=== PATIENT | male | born 1940 | race Caucasian/White ===

== ENCOUNTER 2016-08-02 14:47 | Inpatient (IN) | payer MEDICARE ==
[~2016-08-02] VITALS: Ht 152.4 cm; Wt 65.0 kg
[2016-08-02 14:49] VITALS: BP 136/65; PULSE 96; RESP 20; TEMP 100.2; O2SAT 92
[2016-08-02] MEDS ORDERED: SODIUM CHLOR 0.9% 1000 ML INJ 1,000 ML IV SCH ×3 (15:16→19:30)
--- NOTE | 2016-08-02 15:23 | PD ---
HPI Chief Complaint: Musculoskeletal Complaint Time Seen by Provider: 15:10 Travel History International Travel<30 days: No Contact w/Intl Traveler<30days: No Traveled to known affect area: No History of Present Illness HPI 75-year-old male presents with his for evaluation. The reports that he and his are currently on vacation to attend a conference from [place]. He reports that throughout the day today the patient has not been talking very much. He has also been walking very slowly shuffling gait. For this reason he was brought in for evaluation. He has had a cough since yesterday. He denies any chest pain, shortness of breath, headache, nausea or vomiting, abdominal pain, dysuria, flank pain. No rashes. The reports he has a history of left knee replacement in 2014, history of hearing impairment. He is otherwise without significant past medical history. No other complaints at this time. [facility] Past Medical History Medical History: Denies Significant Hx Diminished Hearing: Yes (bilateral ) Past Surgical History Eye Surgery: Yes Other Surgery: Yes (left knee ) Social History Alcohol Use: No Tobacco Use: No Substance Use: No Allergies-Medications (Allergen,Severity, Reaction): Coded Allergies: Penicillin (Verified Allergy, Severe, Rash, 08/02/16) Reported Meds & Prescriptions Reported Meds & Active Scripts Active No Active Prescriptions or Reported Medications Review of Systems Except as stated in HPI: all other systems reviewed are Neg Physical Exam Narrative GENERAL: Well-developed well-nourished male in no acute distress. He is alert to person and place, knows the month but thinks the year is 1975. He has a dry cough during examination. SKIN: Warm and dry. HEAD: Atraumatic. Normocephalic. EYES: Pupils equal and round. No scleral icterus. No injection or drainage. ENT: No nasal bleeding or discharge. Mucous membranes pink and moist. Nasal rhinorrhea noted. NECK: Trachea midline. No JVD. No lymphadenopathy. CARDIOVASCULAR: Regular rate and rhythm. No murmur appreciated. RESPIRATORY: No accessory muscle use. Clear to auscultation. Breath sounds equal bilaterally. GASTROINTESTINAL: Abdomen soft, non-tender, nondistended. Hepatic and splenic margins not palpable. MUSCULOSKELETAL: No obvious deformities. Anterior left surgical scar noted to the left knee. No joint effusion. NEUROLOGICAL: Awake and alert. No obvious cranial nerve deficits. Motor grossly within normal limits. Normal speech. PSYCHIATRIC: Appropriate mood and affect; insight and judgment normal. Data Data Last Documented VS Vital Signs Date Time Temp Pulse Resp B/P Pulse Ox O2 Delivery O2 Flow Rate FiO2 08/02/16 18:00 78 16 116/54 97 Room Air 08/02/16 16:18 100.2 Orders Electrocardiogram (08/02/16 15:16) Complete Blood Count With Diff (08/02/16 15:16) Comprehensive Metabolic Panel (08/02/16 15:16) Lactic Acid Sepsis Protocol (08/02/16 15:16) Urinalysis - C+S If Indicated (08/02/16 15:16) Influenzae A/B Antigen (08/02/16 15:16) Blood Culture (08/02/16 15:16) Blood Glucose (08/02/16 15:16) Ecg Monitoring (08/02/16 15:16) Iv Access Insert/Monitor (08/02/16 15:16) Oximetry (08/02/16 15:16) Oxygen Administration (08/02/16 15:16) Ct Brain W/O Iv Contrast(Rout) (08/02/16 15:16) Sodium Chlor 0.9% 1000 Ml Inj (Ns 1000 M (08/02/16 15:16) Acetaminophen (Tylenol) (08/02/16 15:30) Chest, Pa & Lat (08/02/16 ) Act Partial Throm Time (Ptt) (08/02/16 15:16) Prothrombin Time / Inr (Pt) (08/02/16 15:16) Ammonia (08/02/16 15:39) Csf B.Burgdorfer Igg&Igm Lymes (08/02/16 17:32) Csf Cell Count + Differential (08/02/16 17:32) Glucose, Csf (08/02/16 17:32) Total Protein, Csf (08/02/16 17:32) Csf Culture And Gram Stain (08/02/16 17:32) Ceftriaxone Inj (Rocephin Inj) (08/02/16 17:38) Vancomycin Inj (Vancomycin Inj) (08/02/16 18:45) Lidocaine Pf 1% Inj (Xylocaine-Mpf 1% In (08/02/16 18:15) Sodium Chlor 0.9% 1000 Ml Inj (Ns 1000 M (08/02/16 18:24) Admit Order (Ed Use Only) (08/02/16 18:45) Labs Laboratory Tests Test 08/02/16 08/02/16 15:20 15:50 White Blood Count 8.3 TH/MM3 Red Blood Count 4.25 MIL/MM3 Hemoglobin 13.3 GM/DL Hematocrit 39.6 % Mean Corpuscular Volume 93.3 FL Mean Corpuscular Hemoglobin 31.4 PG Mean Corpuscular Hemoglobin 33.6 % Concent Red Cell Distribution Width 14.4 % Platelet Count 178 TH/MM3 Mean Platelet Volume 9.4 FL Neutrophils (%) (Auto) 84.5 % Lymphocytes (%) (Auto) 3.4 % Monocytes (%) (Auto) 10.6 % Eosinophils (%) (Auto) 0.8 % Basophils (%) (Auto) 0.7 % Neutrophils # (Auto) 7.0 TH/MM3 Lymphocytes # (Auto) 0.3 TH/MM3 Monocytes # (Auto) 0.9 TH/MM3 Eosinophils # (Auto) 0.1 TH/MM3 Basophils # (Auto) 0.1 TH/MM3 CBC Comment DIFF FINAL Differential Comment Prothrombin Time 11.5 SEC Prothromb Time International 1.0 RATIO Ratio Activated Partial 25.3 SEC Thromboplast Time Urine Color DARK-YELLOW Urine Turbidity CLEAR Urine pH 5.5 Urine Specific [place] 1.030 Urine Protein 30 mg/dL Urine Glucose (UA) NEG mg/dL Urine Ketones NEG mg/dL Urine Occult Blood NEG Urine Nitrite NEG Urine Bilirubin NEG Urine Urobilinogen LESS THAN 2.0 MG/DL Urine Leukocyte Esterase NEG Urine RBC 5 /hpf Urine WBC 2 /hpf Urine Squamous Epithelial <1 /hpf Cells Urine Mucus FEW /lpf Microscopic Urinalysis Comment CATH-CULT NOT IND Sodium Level 138 MEQ/L Potassium Level 4.1 MEQ/L Chloride Level 103 MEQ/L Carbon Dioxide Level 28.4 MEQ/L Anion Gap 7 MEQ/L Blood Urea Nitrogen 18 MG/DL Creatinine 1.14 MG/DL Estimat Glomerular Filtration 62 ML/MIN Rate Random Glucose 158 MG/DL Lactic Acid Level 1.3 mmol/L Calcium Level 8.8 MG/DL Total Bilirubin 0.8 MG/DL Aspartate Amino Transf 14 U/L (AST/SGOT) Alanine Aminotransferase 17 U/L (ALT/SGPT) Alkaline Phosphatase 78 U/L Total Protein 7.5 GM/DL Albumin 4.0 GM/DL Ammonia 19 MCMOL/L MDM Medical Decision Making Medical Screen Exam Complete: Yes Emergency Medical Condition: Yes Medical Record Reviewed: Yes Interpretation(s) EKG NSR RATE 84 CT of the brain CONCLUSION: 1. No acute intracranial abnormalities. 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 CBC WBC 8.3, neutrophil percentage 84.5 CMP glucose 158 Lactic acid 1.3 Ammonia 19 Influenza negative Chest x-ray no active disease. Compression deformity at T11 of uncertain age. Differential Diagnosis Pneumonia, influenza, pyelonephritis, meningitis, septic arthritis, sinusitis Narrative Course 75-year-old male who has had a cough since yesterday presents with because he seemed to be walking slower than usual, less communicative than usual since he woke up this morning. On initial examination he is febrile with temperature 102.8. He responds to commands appropriately. He is somewhat slow to answer questions alert and oriented to person and place but initially thinking the year was 1970s. He has rhinorrhea and a cough during examination. He has no meningeal signs. No obvious rashes. His abdomen is soft and nontender. Plan is for basic lab work, chest x-ray, influenza antigen and CT of the brain. The patient was given IV fluids and Tylenol. Discussed with my attending who agrees with plan of care. Chest x-ray reveals no acute disease. He has moderate compression deformity of T11 of uncertain age. He has no point tenderness to palpation over this region and he had no recent falls according to the so likely nonacute. Upon speaking with the patient's further she does mention that the patient was diagnosed with Lyme disease and babesiosis in 2006 and had similar episode of altered mental status that time. His initial test results reveal no acute etiology for his fever and altered mental status and therefore discussion was made with the recommendation to the patient's for consent for lumbar puncture and ultimately for admission for further testing and treatment. The patient was empirically started on Rocephin and vancomycin after the lumbar puncture was performed by Dr. Lozano. D/W Devin Will who is agreeable with admission. Procedures EKG Prior to Arrival: Yes Sepsis Criteria SIRS Criteria (2 or more): Temp > 100.9 or < 96.8, Heart rate over 90 Criteria Outcome: Meets SIRS criteria Diagnosis Primary Impression: Altered mental status Qualified Code: R41.82 - Altered mental status, unspecified altered mental status type Additional Impressions: Fever Qualified Code: R50.9 - Fever, unspecified fever cause Encephalitis Admitting Information Admitting Physician Requests: Admit Scripts No Active Prescriptions or Reported Meds Aroldo Rose Aug 02, 2016 15:23
[2016-08-02] MEDS ORDERED: ACETAMINOPHEN 325 MG TAB PO ONE (15:30)
[2016-08-02 15:45] VITALS: TEMP 102.8
[2016-08-02 15:57] LABS: BASOPHIL # 0.1 TH/MM3 (0-0.2); BASOPHIL % 0.7 % (0.0-2.0); EOSINOPHIL # 0.1 TH/MM3 (0-0.4); EOSINOPHIL % 0.8 % (0.0-4.0); HEMATOCRIT 39.6 % (39.0-51.0); HEMO FLAGS DIFF FINAL; LYMPH % 3.4 % (9.0-44.0); LYMPHOCYTE # 0.3 TH/MM3 (1.0-4.8); MEAN CELL VOLUME 93.3 FL (80.0-100.0); MEAN CORPUSCULAR HEMOGLOBIN 31.4 PG (27.0-34.0); MEAN CORPUSCULAR HGB CONC 33.6 % (32.0-36.0); MONO % 10.6 % (0.0-8.0); NEUT % 84.5 % (16.0-70.0); PLATELET COUNT 178 TH/MM3 (150-450); RED BLOOD COUNT 4.25 MIL/MM3 (4.50-5.90); RED CELL DISTRIBUTION WIDTH 14.4 % (11.6-17.2); WHITE BLOOD COUNT 8.3 TH/MM3 (4.0-11.0)
[2016-08-02 15:58] LABS: BLOOD, URINE NEG (NEG); GLUCOSE,URINE NEG (NEG); KETONE, URINE NEG (NEG); MUCUS URINE FEW /lpf (OCC); NITRITE,URINE NEG (NEG); PH, URINE 5.5 (5.0-8.5); SQUAMOUS EPITHELIAL CELL URINE <1 /hpf (0-5); URINE COLOR DARK-YELLOW (YELLW/STRAW)
[2016-08-02 16:02] LABS: COMMENT (UR) CATH-CULT NOT IND; CULTURE IF INDICATED CATH CULTURE NOT IND
[2016-08-02 16:04] LABS: APTT (PATIENT) 25.3 SEC (24.3-30.1); PROTHROMBIN TIME - PATIENT 11.5 SEC (9.8-11.6)
--- NOTE | 2016-08-02 16:04 | RADRPT ---
EXAM DATE/TIME: 08/02/2016 15:37 [facility] COMPARISON: No previous studies available for comparison. INDICATIONS : Cough and fever. MEDICAL HISTORY : None. SURGICAL HISTORY : None. ENCOUNTER: Initial ACUITY: 4 - 6 days PAIN SCORE: 0/10 LOCATION: Bilateral chest FINDINGS: PA and lateral views of the chest demonstrate the lungs to be symmetrically aerated without evidence of mass, infiltrate or effusion. The cardiomediastinal contours are unremarkable. Moderate compressi on deformity at T11. CONCLUSION: No active disease. Compression deformity at T11 of uncertain age. Jaylen Fiore MD on August 02, 2016 at 16:02 Board Certified Radiologist. This report was verified electronically.
[2016-08-02 16:08] LABS: ALT (GPT) 17 U/L (12-78); ANION GAP 7 MEQ/L (5-15); AST (GOT) 14 U/L (15-37); BICARBONATE 28.4 MEQ/L (21.0-32.0); BLOOD UREA NITROGEN 18 MG/DL (7-18); CHLORIDE 103 MEQ/L (98-107); GLOMERULAR FILTRATION RATE 62 ML/MIN (>89); POTASSIUM 4.1 MEQ/L (3.5-5.1); SODIUM (NA) 138 MEQ/L (136-145)
[2016-08-02 16:11] LABS: ALKALINE PHOSPHATASE 78 U/L (45-117); TOTAL BILIRUBIN ADULT 0.8 MG/DL (0.2-1.0)
[2016-08-02 16:18] VITALS: TEMP 100.2
--- NOTE | 2016-08-02 16:53 | RADRPT ---
EXAM DATE/TIME: 08/02/2016 16:35 [facility] COMPARISON: No previous studies available for comparison. INDICATIONS : Altered mental status. RADIATION DOSE: 56.35 CTDIvol (mGy) MEDICAL HISTORY : None SURGICAL HISTORY : None. ENCOUNTER: Initial ACUITY: 1 day PAIN SCALE: 0/10 LOCATION: cranial TECHNIQUE: Multiple contiguous axial images were obtained of the head. Using automated exposure control and adj ustment of the mA and/or kV according to patient size, radiation dose was kept as low as reasonably a chievable to obtain optimal diagnostic quality images. FINDINGS: CEREBRUM: The ventricles are normal for age. No evidence of midline shift, mass lesion, hemorrhage or acute in farction. No extra-axial fluid collections are seen. POSTERIOR FOSSA: The cerebellum and brainstem are intact. The 4th ventricle is midline. The cerebellopontine angle i s unremarkable. EXTRACRANIAL: The visualized portion of the orbits is intact. There is a large retention cyst in the sphenoid sinus . SKULL: The calvaria is intact. No evidence of skull fracture. CONCLUSION: 1. No acute intracranial abnormalities. 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 Jaylen Fiore MD on August 02, 2016 at 16:50 Board Certified Radiologist. This report was verified electronically.
[2016-08-02] MEDS ORDERED: cefTRIAXone INJ 2,000 MG in SODIUM CHLORIDE 0.9% INJ 100 ML IV STA (17:38)
--- NOTE | 2016-08-02 17:42 | PD ---
Physical Exam Date Seen by Provider: Aug 02, 2016 Time Seen by Provider: 18:27 Narrative 75-year-old male came to the emergency room brought by his with history of fever, altered sensorium, confusion and delirium that started since this morning. Patient is from [place] and they are here on a conference. His temperature in the emergency room upon arrival was 102.5. Patient is hard of hearing but was confused with his orientation. He did not know which city he was in and what was he doing here. gave additional information of patient being diagnosed with Lyme's disease and Babesiosis in 2005. She said at that time he had presented in the similar fashion and he was in the hospital for 10 days and being treated with IV antibiotic. Patient was seen by the PA and I'm supervising him. Sepsis workup was done and all the test results came back to be within normal limit with negative chest x-ray and negative influenza test. However given his past medical history and no source of infection I recommended a spinal tap. The who was the healthcare proxy at this point since patient was not in capacity to make decisions for himself eventually decided to consent us for the spinal tap after talking to her friends and family on the phone. I just finished doing the spinal tap and 4 tubes of fluid has been sent for his tests. Patient will need admission. He was given IV Rocephin meningitic dose. He is getting IV fluid bolus 2 L. Patient remained hemodynamically stable with slightly low saturations. Data Data Last Documented VS Vital Signs Date Time Temp Pulse Resp B/P Pulse Ox O2 Delivery O2 Flow Rate FiO2 08/02/16 18:00 78 16 116/54 97 Room Air 08/02/16 16:18 100.2 Orders Electrocardiogram (08/02/16 15:16) Complete Blood Count With Diff (08/02/16 15:16) Comprehensive Metabolic Panel (08/02/16 15:16) Lactic Acid Sepsis Protocol (08/02/16 15:16) Urinalysis - C+S If Indicated (08/02/16 15:16) Influenzae A/B Antigen (08/02/16 15:16) Blood Culture (08/02/16 15:16) Blood Glucose (08/02/16 15:16) Ecg Monitoring (08/02/16 15:16) Iv Access Insert/Monitor (08/02/16 15:16) Oximetry (08/02/16 15:16) Oxygen Administration (08/02/16 15:16) Ct Brain W/O Iv Contrast(Rout) (08/02/16 15:16) Sodium Chlor 0.9% 1000 Ml Inj (Ns 1000 M (08/02/16 15:16) Acetaminophen (Tylenol) (08/02/16 15:30) Chest, Pa & Lat (08/02/16 ) Act Partial Throm Time (Ptt) (08/02/16 15:16) Prothrombin Time / Inr (Pt) (08/02/16 15:16) Ammonia (08/02/16 15:39) Csf B.Burgdorfer Igg&Igm Lymes (08/02/16 17:32) Csf Cell Count + Differential (08/02/16 17:32) Glucose, Csf (08/02/16 17:32) Total Protein, Csf (08/02/16 17:32) Csf Culture And Gram Stain (08/02/16 17:32) Ceftriaxone Inj (Rocephin Inj) (08/02/16 17:38) Vancomycin Inj (Vancomycin Inj) (08/02/16 18:45) Lidocaine Pf 1% Inj (Xylocaine-Mpf 1% In (08/02/16 18:15) Sodium Chlor 0.9% 1000 Ml Inj (Ns 1000 M (08/02/16 18:24) Admit Order (Ed Use Only) (08/02/16 18:45) Labs Laboratory Tests Test 08/02/16 08/02/16 08/02/16 15:20 15:50 18:20 White Blood Count 8.3 TH/MM3 Red Blood Count 4.25 MIL/MM3 Hemoglobin 13.3 GM/DL Hematocrit 39.6 % Mean Corpuscular Volume 93.3 FL Mean Corpuscular Hemoglobin 31.4 PG Mean Corpuscular Hemoglobin 33.6 % Concent Red Cell Distribution Width 14.4 % Platelet Count 178 TH/MM3 Mean Platelet Volume 9.4 FL Neutrophils (%) (Auto) 84.5 % Lymphocytes (%) (Auto) 3.4 % Monocytes (%) (Auto) 10.6 % Eosinophils (%) (Auto) 0.8 % Basophils (%) (Auto) 0.7 % Neutrophils # (Auto) 7.0 TH/MM3 Lymphocytes # (Auto) 0.3 TH/MM3 Monocytes # (Auto) 0.9 TH/MM3 Eosinophils # (Auto) 0.1 TH/MM3 Basophils # (Auto) 0.1 TH/MM3 CBC Comment DIFF FINAL Differential Comment Prothrombin Time 11.5 SEC Prothromb Time International 1.0 RATIO Ratio Activated Partial 25.3 SEC Thromboplast Time Urine Color DARK-YELLOW Urine Turbidity CLEAR Urine pH 5.5 Urine Specific [place] 1.030 Urine Protein 30 mg/dL Urine Glucose (UA) NEG mg/dL Urine Ketones NEG mg/dL Urine Occult Blood NEG Urine Nitrite NEG Urine Bilirubin NEG Urine Urobilinogen LESS THAN 2.0 MG/DL Urine Leukocyte Esterase NEG Urine RBC 5 /hpf Urine WBC 2 /hpf Urine Squamous Epithelial <1 /hpf Cells Urine Mucus FEW /lpf Microscopic Urinalysis Comment CATH-CULT NOT IND Sodium Level 138 MEQ/L Potassium Level 4.1 MEQ/L Chloride Level 103 MEQ/L Carbon Dioxide Level 28.4 MEQ/L Anion Gap 7 MEQ/L Blood Urea Nitrogen 18 MG/DL Creatinine 1.14 MG/DL Estimat Glomerular Filtration 62 ML/MIN Rate Random Glucose 158 MG/DL Lactic Acid Level 1.3 mmol/L Calcium Level 8.8 MG/DL Total Bilirubin 0.8 MG/DL Aspartate Amino Transf 14 U/L (AST/SGOT) Alanine Aminotransferase 17 U/L (ALT/SGPT) Alkaline Phosphatase 78 U/L Total Protein 7.5 GM/DL Albumin 4.0 GM/DL Ammonia 19 MCMOL/L CSF Volume (Tube 1) 1.3 ML CSF Supernatant Color (tube 1) CLEAR CSF Gross Blood (Tube 1) 0 CSF Volume (Tube 2) 1.5 ML CSF Supernatant Color (tube 2) CLEAR CSF Gross Blood (Tube 2) 0 CSF Volume (Tube 3) 1.5 ML CSF Supernatant Color (tube 3) CLEAR CSF Gross Blood (Tube 3) 0 CSF Volume (Tube 4) 1.5 ML CSF Supernatant Color (tube 4) CLEAR CSF Gross Blood (Tube 4) 0 CSF WBC (Tube 4) 0 /MM3 CSF RBC (Tube 4) 13 /MM3 CSF Neutrophils 0 % CSF Lymphocytes 0 % CSF Glucose 100 MG/DL CSF Total Protein 66.5 MG/DL MDM Supervised Visit with JAMEY: Yes Critical Care Narrative Aggregate critical care time was 30 minutes. Time to perform other separately billable procedures was not included in the critical care time. My time did not include minutes spent treating any other patients simultaneously or on activities that did not directly contribute to the patient's treatment. The services I provided to this patient were to treat and/or prevent clinically significant deterioration that could result in: Altered mental status, fever, possible viral encephalitis, fluid rehydration I provided critical care services requiring my management, as noted below: Chart data review, documentation time, medication orders and management, vital sign assessments/reviewing monitor data, ordering and reviewing lab tests, ordering and interpreting/reviewing x-rays and diagnostic studies, care of the patient and discussion of the patient with the admitting physicians. Procedures Procedure Narrative After the risks and benefits were discussed the following procedure was performed: LUMBAR PUNCTURE: The patient was placed in the left lateral decubitus position. The lumbar area of the back was prepped with Betadine and sterilely draped. The L3 -- L4 interspace was infiltrated with 1% lidocaine plain. Number 20 gauge LP needle was placed in the interspace. Opening pressure 25 mm H2O. Number 15 milliliters of clear CSF were obtained. Patient tolerated procedure well. Sepsis Criteria SIRS Criteria (2 or more): Temp > 100.9 or < 96.8 Severe Sepsis (+one): Organ Dysfunction Criteria Outcome: Meets SIRS criteria Diagnosis Primary Impression: OTHER SPECIFIED VIRAL ENCEPHALITIS Additional Impressions: ALTERED MENTAL STATUS, UNSPECIFIED Fever Qualified Code: R50.9 - Fever, unspecified fever cause Admitting Information Admitting Physician Requests: Admit Scripts No Active Prescriptions or Reported Meds Mary Lozano MD Aug 02, 2016 17:42
[2016-08-02 18:00] VITALS: BP 116/54; PULSE 78; RESP 16; O2SAT 97
[2016-08-02] MEDS ORDERED: LIDOCAINE HCL 1% PF 30 ML VIAL INFIL ONE (18:15)
[2016-08-02] MEDS ORDERED: VANCOMYCIN INJ 1,650 MG in SODIUM CHLORID 0.9% 500 ML INJ 500 ML IV ONE (18:45)
[2016-08-02 19:24] LABS: CSF LYMPHOCYTES 0 %; CSF NEUTROPHILS 0 %; GROSS BLOOD TUBE #1 0 (0); GROSS BLOOD TUBE #2 0 (0); GROSS BLOOD TUBE #3 0 (0); GROSS BLOOD TUBE #4 0 (0); SUPERNATE COLOR TUBE #1 CLEAR (CLEAR); SUPERNATE COLOR TUBE #2 CLEAR (CLEAR); SUPERNATE COLOR TUBE #3 CLEAR (CLEAR); SUPERNATE COLOR TUBE #4 CLEAR (CLEAR); VOLUME TUBE # 1 1.3 ML; VOLUME TUBE # 2 1.5 ML; VOLUME TUBE # 3 1.5 ML; VOLUME TUBE # 4 1.5 ML; WBC TUBE #4 0 /MM3 (0-10)
[2016-08-02 19:30] VITALS: BP 126/56; PULSE 79; RESP 16; O2SAT 97
[2016-08-02] MEDS ORDERED: Vancomycin Consult Pharmacy 1 EA OTHER SCH (19:30)
[2016-08-02] MEDS ORDERED: ACETAMINOPHEN/HYDROcodone 325 MG/5 MG TAB PO PRN (19:30)
[2016-08-02] MEDS ORDERED: ACETAMINOPHEN/HYDROcodone 325 MG/10 MG TAB PO PRN (19:30)
[2016-08-02] MEDS ORDERED: ONDANSETRON HCL 4 MG/2 ML VIAL IVP PRN (19:30)
[2016-08-02] MEDS ORDERED: SODIUM CHLORIDE 0.9% FLUSH 5 ML FLUSH FLUSH PRN (19:30)
[2016-08-02] MEDS ORDERED: BISACODYL 10 MG SUPP PR PRN (19:30)
--- NOTE | 2016-08-02 19:38 | HHI.HP ---
HPI Service [facility] Primary Care Physician No Primary Care Physician Admission Diagnosis encephalitis, SIRS Diagnoses: (1) Encephalopathy Diagnosis: Principal (2) SIRS (systemic inflammatory response syndrome) Diagnosis: Principal (3) Hyperglycemia Diagnosis: Principal (4) Dehydration Diagnosis: Principal Travel History International Travel<30 Days: No Contact w/Intl Traveler <30 Da: No Traveled to Known Affected Are: No History of Present Illness This is a 75-year-old male with PMH Lyme's Disease in 2005 who was brought to the ER by secondary to AMS and gait instability starting acutely this morning. Per , they are visiting from [place] for a Conference, this morning noted pt to be confused w/ slow responses and walking slowly. states symptoms similar to previous episode of Lyme's Disease. Notes non- productive cough, but no fever, SOB or sick contacts. On arrival, BP 136/65, HR 96, O2 sat 92% on RA, Temp 102.8. WBC normal, elevated neutrophil count. Chemistry essentially unremarkable except for GFR 62, BS 158. Lactic Acid 1.3. Ammonia 19. INR 1.0. UA with mild hematuria. CXR with no acute findings, compression deformity at T11 of uncertain age. CT Head with no acute findings, large retention cyst or mucocele and sphenoid sinus. S/p Blood Cultures, Vanc/ Rocephin in ER. S/p LP in ER w/ opening pressure 25mmHg, clear CSF noted, culture/gram stain pending. Review of Systems Except as stated in HPI: all other systems reviewed are Neg ROS: 14 point review of systems otherwise negative. Past Family Social History Past Medical History PMH: Lyme's Disease in 2006 Past Surgical History PAST SURGICAL HISTORY: Left Knee Surgery, Eye Surgery Allergies: Coded Allergies: Penicillin (Verified Allergy, Severe, Rash, 08/02/16) Family History PAST FAMILY HISTORY: Reviewed. No h/o DM or CAD Social History PAST SOCIAL HISTORY: Negative for alcohol, tobacco or drugs. Physical Exam Vital Signs Vital Signs Date Time Temp Pulse Resp B/P Pulse Ox O2 Delivery O2 Flow Rate FiO2 08/02/16 18:00 78 16 116/54 97 Room Air 08/02/16 16:18 100.2 08/02/16 15:45 102.8 08/02/16 15:13 98 18 08/02/16 14:49 100.2 96 20 136/65 92 Room Air Physical Exam PE: GENERAL: Elderly white male in no acute distress, appears slightly younger than stated age.. HEENT: PERRLA, EOMI. No scleral icterus or conjunctival pallor. No lid lag or facial droop. CARDIOVASCULAR: Regular rate and rhythm. No obvious murmurs to auscultation. No chest tenderness to palpation. RESPIRATORY: No obvious rhonchi or wheezing. Clear to auscultation. Breath sounds equal bilaterally. GASTROINTESTINAL: Abdomen soft, non-tender, nondistended. BS normal. MUSCULOSKELETAL: Extremities without clubbing, cyanosis, or edema. No obvious deformities. NEUROLOGICAL: Awake, alert and oriented to person and place, no focal neurologic deficits. Moving both upper and lower extremities spontaneously. Laboratory Laboratory Tests Test 08/02/16 08/02/16 08/02/16 15:20 15:50 18:20 White Blood Count 8.3 Red Blood Count 4.25 Hemoglobin 13.3 Hematocrit 39.6 Mean Corpuscular Volume 93.3 Mean Corpuscular Hemoglobin 31.4 Mean Corpuscular Hemoglobin 33.6 Concent Red Cell Distribution Width 14.4 Platelet Count 178 Mean Platelet Volume 9.4 Neutrophils (%) (Auto) 84.5 Lymphocytes (%) (Auto) 3.4 Monocytes (%) (Auto) 10.6 Eosinophils (%) (Auto) 0.8 Basophils (%) (Auto) 0.7 Neutrophils # (Auto) 7.0 Lymphocytes # (Auto) 0.3 Monocytes # (Auto) 0.9 Eosinophils # (Auto) 0.1 Basophils # (Auto) 0.1 CBC Comment DIFF FINAL Differential Comment Prothrombin Time 11.5 Prothromb Time International 1.0 Ratio Activated Partial 25.3 Thromboplast Time Urine Color DARK-YELLOW Urine Turbidity CLEAR Urine pH 5.5 Urine Specific [place]arrison 1.030 Urine Protein 30 Urine Glucose (UA) NEG Urine Ketones NEG Urine Occult Blood NEG Urine Nitrite NEG Urine Bilirubin NEG Urine Urobilinogen LESS THAN 2.0 Urine Leukocyte Esterase NEG Urine RBC 5 Urine WBC 2 Urine Squamous Epithelial <1 Cells Urine Mucus FEW Microscopic Urinalysis Comment CATH-CULT NOT IND Sodium Level 138 Potassium Level 4.1 Chloride Level 103 Carbon Dioxide Level 28.4 Anion Gap 7 Blood Urea Nitrogen 18 Creatinine 1.14 Estimat Glomerular Filtration 62 Rate Random Glucose 158 Lactic Acid Level 1.3 Calcium Level 8.8 Total Bilirubin 0.8 Aspartate Amino Transf 14 (AST/SGOT) Alanine Aminotransferase 17 (ALT/SGPT) Alkaline Phosphatase 78 Total Protein 7.5 Albumin 4.0 Ammonia 19 CSF Volume (Tube 1) 1.3 CSF Supernatant Color (tube 1) CLEAR CSF Gross Blood (Tube 1) 0 CSF Volume (Tube 2) 1.5 CSF Supernatant Color (tube 2) CLEAR CSF Gross Blood (Tube 2) 0 CSF Volume (Tube 3) 1.5 CSF Supernatant Color (tube 3) CLEAR CSF Gross Blood (Tube 3) 0 CSF Volume (Tube 4) 1.5 CSF Supernatant Color (tube 4) CLEAR CSF Gross Blood (Tube 4) 0 CSF WBC (Tube 4) 0 CSF RBC (Tube 4) 13 CSF Neutrophils 0 CSF Lymphocytes 0 CSF Glucose 100 CSF Total Protein 66.5 Date/Time Procedure Status Source Growth 08/02/16 18:20 Gram Stain - Final Resulted Cerebral Spinal Fluid Lumbar Puncture 08/02/16 18:20 CSF Culture Resulted Cerebral Spinal Fluid Lumbar Puncture Pending 08/02/16 15:50 Influenza Types A,B Antigen (WENDI) - Final Complete Nasal Aspirate NEGATIVE FOR FLU A AND B ANTIGEN.... 08/02/16 15:25 Aerobic Blood Culture Received Blood Peripheral Pending 08/02/16 15:25 Anaerobic Blood Culture Received Blood Peripheral Pending Result Diagram: 08/02/16 1520 08/02/16 1520 Assessment and Plan Problem List: (1) Encephalopathy ICD Code: G93.40 Status: Acute (2) SIRS (systemic inflammatory response syndrome) ICD Code: R65.10 Status: Acute (3) Dehydration ICD Code: E86.0 Status: Acute (4) Hyperglycemia ICD Code: R73.9 Status: Acute Assessment and Plan A/P: 1. Encephalopathy: Acute onset of AMS and confusion noted by . CT Head w / no acute findings, images reviewed by me. +Febrile, possibly related to acute infection however no obvious source at this time. CXR negative for acute findings, images reviewed by me. U/a negative. S/p LP in ER, opening pressure 25mmHg, CSF clear, WBC 0, Neutrophils 0, Lymph 0, CSF Glucose 100, CSF Protein 66. h/o Lyme's Disease, CSF pending. S/p Blood Cultures, Vanc/Rocephin in ER. Follow up cultures, continue w/ IV Abx, consult ID for further recommendations. 2. SIRS: Fever of unknown origin, Temp 102.8, HR 96, Source-unclear, r/o Meningitis. reports recent cough, CXR w/ no acute findings, ? early PNA. Influenza negative. Continue w/ IV Abx as above. 3. Dehydration: GFR 62, BUN/Creatinine normal, U/a negative. IVF for hydration. 4. Hyperglycemia: BS 158, no h/o DM. Check Hgb A1c. Sliding scale w/ Accu- Cheks as needed. 5. DVT Prophylaxis: SCD/Teds. 6. Social work for d/c planning as needed. 7. Case discussed w/ ER physician at length. Physician Certification 2 Midnight Certification Type: Admission for Inpatient Services Order for Inpatient Services The services are ordered in accordance with Medicare regulations or non- Medicare payer requirements, as applicable. In the case of services not specified as inpatient-only, they are appropriately provided as inpatient services in accordance with the 2-midnight benchmark. Estimated LOS (days): 2 days is the estimated time the patient will need to remain in the hospital, assuming treatment plan goals are met and no additional complications. Post-Hospital Plan: Not yet determined Isamar Rothman MD Aug 02, 2016 19:38
[2016-08-02] MEDS: SODIUM CHLORIDE 0.9% FLUSH 5 ML FLUSH FLUSH SCH (20:38)
[2016-08-02 22:00] VITALS: PULSE 87
[2016-08-02] MEDS: DEXTROSE 5% IV SCH ×2 (22:56)
[2016-08-02] MEDS: WATE IV SCH ×2 (22:56)
[2016-08-02] MEDS: SULFAMETHOX IV SCH ×2 (22:56)
[2016-08-02] MEDS: TRIMETHOPRIM IV SCH ×2 (22:56)
[2016-08-02] MEDS: ACETAMINOPHEN 325 MG TAB PO PRN (22:57)
[2016-08-03] VITALS (8 sets, daily range): BP systolic 104–136; BP diastolic 58–75; PULSE 72–88; RESP 17–28; TEMP 98.6–101.5; O2SAT 94–97
[2016-08-03 04:57] LABS: AUTOMATED NEUTROPHIL # 3.2 TH/MM3 (1.8-7.7); EOSINOPHIL # 0.1 TH/MM3 (0-0.4); EOSINOPHIL % 1.6 % (0.0-4.0); HEMATOCRIT 36.6 % (39.0-51.0); HEMO FLAGS DIFF FINAL; LYMPH % 7.7 % (9.0-44.0); LYMPHOCYTE # 0.3 TH/MM3 (1.0-4.8); MEAN CELL VOLUME 92.6 FL (80.0-100.0); MEAN CORPUSCULAR HEMOGLOBIN 31.5 PG (27.0-34.0); MONO % 19.9 % (0.0-8.0); NEUT % 69.8 % (16.0-70.0); PLATELET COUNT 142 TH/MM3 (150-450); RED BLOOD COUNT 3.95 MIL/MM3 (4.50-5.90); RED CELL DISTRIBUTION WIDTH 14.6 % (11.6-17.2); WHITE BLOOD COUNT 4.5 TH/MM3 (4.0-11.0)
[2016-08-03 05:33] LABS: ALKALINE PHOSPHATASE 61 U/L (45-117); ALT (GPT) 15 U/L (12-78); ANION GAP 8 MEQ/L (5-15); AST (GOT) 16 U/L (15-37); BICARBONATE 25.5 MEQ/L (21.0-32.0); BLOOD UREA NITROGEN 10 MG/DL (7-18); CHLORIDE 110 MEQ/L (98-107); GLOMERULAR FILTRATION RATE 88 ML/MIN (>89); POTASSIUM 3.7 MEQ/L (3.5-5.1); SODIUM (NA) 143 MEQ/L (136-145); TOTAL BILIRUBIN ADULT 0.5 MG/DL (0.2-1.0)
[2016-08-03] MEDS: cefTRIAXone INJ 2,000 MG in SODIUM CHLORIDE 0.9% INJ 100 ML IV SCH ×2 (06:14→17:24)
[2016-08-03] MEDS: WATE IV SCH ×2 (09:00)
[2016-08-03] MEDS: SODIUM CHLORIDE 0.9% FLUSH 5 ML FLUSH FLUSH SCH ×2 (09:00→22:12)
[2016-08-03] MEDS: SULFAMETHOX IV SCH ×2 (09:00)
[2016-08-03] MEDS: DEXTROSE 5% IV SCH ×2 (09:00)
[2016-08-03] MEDS: TRIMETHOPRIM IV SCH ×2 (09:00)
--- NOTE | 2016-08-03 09:36 | EKG ---
Date Performed: 08/02/2016 Time Performed: 17:00:41 PTAGE: 75 years EKG: Sinus rhythm NORMAL ECG NO PREVIOUS TRACING DOCTOR: Zacarias Wen Interpretating Date/Time 08/03/2016 09:35:52
[2016-08-03] MEDS ORDERED: RESP: ALBUTEROL 2.5 MG/IPRATROPIUM 0.5 MG NEB (PRN) NEB (13:45)
--- NOTE | 2016-08-03 13:50 | HHI.PR ---
Subjective Remarks Follow-up encephalopathy 08/03/16-patient seen and examined, alert or oriented 2. Still spiking fevers. by the bedside Objective Vitals Vital Signs Date Time Temp Pulse Resp B/P Pulse Ox O2 Delivery O2 Flow Rate FiO2 08/03/16 12:00 20 08/03/16 12:00 100.4 74 28 104/58 94 08/03/16 07:36 98.6 78 19 124/60 95 08/03/16 04:00 99.1 72 17 116/58 97 08/03/16 00:40 99.0 95 08/03/16 00:00 101.5 88 17 135/60 96 08/02/16 22:00 87 08/02/16 19:30 79 16 126/56 97 Room Air 08/02/16 18:00 78 16 116/54 97 Room Air 08/02/16 16:18 100.2 08/02/16 15:45 102.8 08/02/16 15:13 98 18 08/02/16 14:49 100.2 96 20 136/65 92 Room Air I/O 08/02/16 08/02/16 08/02/16 08/03/16 08/03/16 08/03/16 07:00 15:00 23:00 07:00 15:00 23:00 Intake Total 240 ml 1185 ml Output Total 200 ml 350 ml Balance 40 ml 835 ml Intake Oral 240 ml 240 ml IV Total 945 ml Output Urine Total 200 ml 350 ml Result Diagram: 08/03/16 0420 08/03/16 0420 Imaging Last Impressions Head CT 08/02/16 1516 Signed Impressions: Service Date/Time: Tuesday, August 02, 2016 16:35 - CONCLUSION: 1. No acute intracranial abnormalities. 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 Jaylen Fiore MD Chest X-Ray 08/02/16 0000 Signed Impressions: Service Date/Time: Tuesday, August 02, 2016 15:37 - CONCLUSION: No active disease. Compression deformity at T11 of uncertain age. Jaylen Fiore MD Objective Remarks GENERAL: NAD SKIN: Warm and dry. HEAD: Normocephalic. EYES: No scleral icterus. No injection or drainage. NECK: Supple, trachea midline. No JVD or lymphadenopathy. CARDIOVASCULAR: Regular rate and rhythm without murmurs, gallops, or rubs. RESPIRATORY: Breath sounds equal bilaterally. No accessory muscle use. Positive for expiratory wheezes GASTROINTESTINAL: Abdomen soft, non-tender, nondistended. MUSCULOSKELETAL: No cyanosis, or edema. BACK: Nontender without obvious deformity. No CVA tenderness. A/P Problem List: (1) Encephalopathy ICD Code: G93.40 Status: Acute (2) SIRS (systemic inflammatory response syndrome) ICD Code: R65.10 Status: Acute (3) Dehydration ICD Code: E86.0 Status: Acute (4) Hyperglycemia ICD Code: R73.9 Status: Acute Assessment and Plan 75-year-old male with 1. Encephalopathy: Acute onset of AMS and confusion. CT Head w/ no acute findings. CXR negative for acute findings. U/a negative. S/p LP . h/o Lyme 's Disease, CSF pending. S/p Blood Cultures, Vanc/Rocephin in ER. Follow up cultures, continue w/ IV Abx, consult ID for further recommendations. 2. SIRS: Fever of unknown origin, Source-unclear, r/o Meningitis. ? early PNA. Influenza negative. Continue w/ IV Abx as above. 3. Dehydration: IVF for hydration. 4. Hyperglycemia: no h/o DM. Check Hgb A1c. Sliding scale w/ Accu-Cheks as needed. Ori Alvarado MD Aug 03, 2016 13:50
[2016-08-03] MEDS: RESP: ALBUTEROL 2.5 MG/IPRATROPIUM 0.5 MG NEB (SCH) NEB ×2 (15:38→19:48)
[2016-08-03 17:02] LABS: HEMOGLOBIN A1a 1.1 %; HEMOGLOBIN Ao 83.4 %; HEMOGLOBIN P3 4.3 %
--- NOTE | 2016-08-03 18:15 | PD.ID.CON ---
History of Present Illness Service ID Consult Requested By / Reason for Consult Evaluation and Mment of Encephalitis Primary Care Physician No Primary Care Physician Diagnoses: History of Present Illness is a 75 y/o CM with PMH reportedly of Lyme's Disease in 2005. Patient reports he has been on immunosuppression using a vaccine for Lymes disease that a chiropracter from [place] gives him as an oral shot. His insurance does not cover this vaccine and they pay 200$ out of pocket to get this vaccine. Last dose self administered was day prior to admission. His has the vaccine in her bag. Patient reports he is here for a life altering conference visiting from [place]. With this background, patient who was brought to the ER by secondary to AMS and gait instability starting acutely this morning. On morning of admission noted pt to be confused w/ slow responses and walking slowly. states symptoms similar to previous episode of Lyme's Disease. Notes non -productive cough, but no fever, SOB or sick contacts. On arrival, BP 136/65, HR 96, O2 sat 92% on RA, Temp 102.8. WBC normal, elevated neutrophil count. Chemistry essentially unremarkable except for GFR 62, BS 158. Lactic Acid 1.3. Ammonia 19. INR 1.0. UA with mild hematuria. CXR with no acute findings, compression deformity at T11 of uncertain [address]. CT Head with no acute findings, large retention cyst or mucocele and sphenoid sinus. S/p Blood Cultures, Vanc/ Rocephin in ER. S/p LP in ER w/ opening pressure 25mmHg, clear CSF noted, culture/gram stain pending. Patient reports not seeing an ID doctor for Lymes disease. Patients reports he easily dozes off sitting in a chair. Denies known sleep apnea but thinks he snores. He also does not have prior history of seizure disorder. No prior history of cold sores or Herpes infections. Consented to HIV testing. ID was consulted to evaluate and Manage for possible meningoencephalitis. Review of Systems ROS Limitations: Poor Historian Constitutional: COMPLAINS OF: Fever, Chills, DENIES: Diaphoretic episodes, Fatigue, Weight gain, Weight loss, Dizziness, Change in appetite, Night Sweats Endocrine: DENIES: Heat/cold intolerance, Polydipsia, Polyuria, Polyphagia Eyes: DENIES: Blurred vision, Diplopia, Eye inflammation, Eye pain, Vision loss , Photosensitivity, Double Vision Ears, nose, mouth, throat: COMPLAINS OF: Hearing loss, DENIES: Tinnitus, Vertigo, Nasal discharge, Oral lesions, Throat pain, Hoarseness, Ear Pain, Running Nose, Epistaxis, Sinus Pain, Toothache, Odynophagia Respiratory: DENIES: Apneas, Cough, Snoring, Wheezing, Hemoptysis, Sputum production, Shortness of breath Cardiovascular: DENIES: Chest pain, Palpitations, Syncope, Dyspnea on Exertion , PND, Lower Extremity Edema, Orthopnea, Claudication Gastrointestinal: DENIES: Abdominal pain, Black stools, Bloody stools, Constipation, Diarrhea, Nausea, Vomiting, Difficulty Swallowing, Anorexia Genitourinary: DENIES: Sexual dysfunction, Urinary frequency, Urinary incontinence, Urgency, Hematuria, Dysuria, Nocturia, Penile Discharge, Testicular Pain, Testicular Swelling Musculoskeletal: DENIES: Joint pain, Muscle aches, Stiffness, Joint Swelling, Back pain, Neck pain Integumentary: DENIES: Abnormal pigmentation, Nail changes, Pruritus, Rash Hematologic/lymphatic: DENIES: Bruising, Lymphadenopathy Immunologic/allergic: DENIES: Eczema, Urticaria Neurologic: COMPLAINS OF: Abnormal gait, Poor Balance, DENIES: Headache, Localized weakness, Paresthesias, Seizures, Speech Problems, Tremor Psychiatric: COMPLAINS OF: Confusion, DENIES: Anxiety, Mood changes, Depression, Hallucinations, Agitation, Suicidal Ideation, Homicidal Ideation, Delusions Except as stated in HPI: all other systems reviewed are Neg Past Family Social History Allergies: Coded Allergies: Penicillin (Verified Allergy, Severe, Rash, 08/02/16) Past Medical History Lyme's Disease in 2006 h/o Rheumatic fever as a child. Past Surgical History Left Knee Surgery, Eye Surgery Reported Medications LYME VACCINE FROM [facility] self pay and self administers. Prescribed by Chiropracter in [place]. Reported Meds & Active Scripts Active No Active Prescriptions or Reported Medications Active Ordered Medications Current Medications Medications (Trade) Dose Ordered Sig/Bernardo Route Start Time Stop Time Status Last Admin Ceftriaxone Sodium 2000 mg/ Sodium Chloride 100 ml @ 200 mls/hr Q12H IV 08/03/16 06:00 08/03/16 17:24 (Vancomycin Consult Pharmacy) 0 ml @ 0 mls/hr UNSCH OTHER 08/02/16 19:30 (NS Flush) 2 ml UNSCH PRN FLUSH 08/02/16 19:30 (NS Flush) 2 ml BID FLUSH 08/02/16 21:00 08/03/16 22:12 (Zofran Inj) 4 mg Q6H PRN IVP 08/02/16 19:30 (Dulcolax Supp) 10 mg DAILY PRN [place] 08/02/16 19:30 (Tylenol) 650 mg Q6H PRN PO 08/02/16 19:30 08/03/16 22:12 ([place] 5-325 Mg) 1 tab Q4H PRN PO 08/02/16 19:30 Acetaminophen/ Hydrocodone Bitart 1 tab 1 tab Q4H PRN PO 08/02/16 19:30 (Vancomycin Inj/ NS 250 ml Inj) 262.5 ml @ 262.5 mls/ hr Q24H IV 08/04/16 02:00 Miscellaneous Information SPECIFIC LAB TO BE ANUEL... ONCE ONCE XX 08/06/16 01:45 08/06/16 01:46 (Zovirax Inj/NS Inj) 100 ml @ 100 mls/hr Q8H IV 08/03/16 20:00 08/03/16 22:11 Family History reviewed and NC to current ID problems. Social History reviewed. Lives in [place] with . Denies alcohol, smoking. Physical Exam Vital Signs Vital Signs Date Time Temp Pulse Resp B/P Pulse Ox O2 Delivery O2 Flow Rate FiO2 08/03/16 16:00 100.4 75 20 127/75 96 08/03/16 12:30 20 08/03/16 12:00 20 08/03/16 12:00 100.4 74 28 104/58 94 08/03/16 07:36 98.6 78 19 124/60 95 08/03/16 04:00 99.1 72 17 116/58 97 08/03/16 00:40 99.0 95 08/03/16 00:00 101.5 88 17 135/60 96 08/02/16 22:00 87 08/02/16 19:30 79 16 126/56 97 Room Air Physical Exam GENERAL: This is a well-nourished, well-developed patient, in no apparent distress. SKIN: No rashes, ecchymoses or lesions. Cool and dry. HEAD: Atraumatic. Normocephalic. No temporal or scalp tenderness. EYES: Pupils equal round and reactive. Extraocular motions intact. No scleral icterus. No injection or drainage. ENT: Nose without bleeding, purulent drainage or septal hematoma. Throat without erythema, tonsillar hypertrophy or exudate. Uvula midline. Airway patent. NECK: Trachea midline. Supple, nontender, no meningeal signs. CARDIOVASCULAR: HS audible. RESPIRATORY: Clear to auscultation. Breath sounds equal bilaterally. No wheezes , rales, or rhonchi. GASTROINTESTINAL: Abdomen soft, non-tender, nondistended. MUSCULOSKELETAL: Extremities without clubbing, cyanosis, or edema. Left knee surgical scar intact. NEUROLOGICAL: Awake and alert. Grossly non focal No neck stiffness Cooperative IV line sites with no e.o infection. Laboratory Laboratory Tests Test 08/02/16 08/03/16 18:20 04:20 CSF Volume (Tube 1) 1.3 CSF Supernatant Color (tube 1) CLEAR CSF Gross Blood (Tube 1) 0 CSF Volume (Tube 2) 1.5 CSF Supernatant Color (tube 2) CLEAR CSF Gross Blood (Tube 2) 0 CSF Volume (Tube 3) 1.5 CSF Supernatant Color (tube 3) CLEAR CSF Gross Blood (Tube 3) 0 CSF Volume (Tube 4) 1.5 CSF Supernatant Color (tube 4) CLEAR CSF Gross Blood (Tube 4) 0 CSF WBC (Tube 4) 0 CSF RBC (Tube 4) 13 CSF Neutrophils 0 CSF Lymphocytes 0 CSF Glucose 100 CSF Total Protein 66.5 White Blood Count 4.5 Red Blood Count 3.95 Hemoglobin 12.4 Hematocrit 36.6 Mean Corpuscular Volume 92.6 Mean Corpuscular Hemoglobin 31.5 Mean Corpuscular Hemoglobin 34.0 Concent Red Cell Distribution Width 14.6 Platelet Count 142 Mean Platelet Volume 9.5 Neutrophils (%) (Auto) 69.8 Lymphocytes (%) (Auto) 7.7 Monocytes (%) (Auto) 19.9 Eosinophils (%) (Auto) 1.6 Basophils (%) (Auto) 1.0 Neutrophils # (Auto) 3.2 Lymphocytes # (Auto) 0.3 Monocytes # (Auto) 0.9 Eosinophils # (Auto) 0.1 Basophils # (Auto) 0.0 CBC Comment DIFF FINAL Differential Comment Sodium Level 143 Potassium Level 3.7 Chloride Level 110 Carbon Dioxide Level 25.5 Anion Gap 8 Blood Urea Nitrogen 10 Creatinine 0.85 Estimat Glomerular Filtration 88 Rate Random Glucose 110 Hemoglobin A1c 6.7 Calcium Level 8.2 Total Bilirubin 0.5 Aspartate Amino Transf 16 (AST/SGOT) Alanine Aminotransferase 15 (ALT/SGPT) Alkaline Phosphatase 61 Total Protein 6.1 Albumin 3.1 Date/Time Procedure Status Source Growth 08/02/16 18:20 Gram Stain - Final Resulted Cerebral Spinal Fluid Lumbar Puncture 08/02/16 18:20 CSF Culture - Preliminary Resulted Cerebral Spinal Fluid Lumbar Puncture NO GROWTH IN 24 HOURS. 08/02/16 15:50 Influenza Types A,B Antigen (WENDI) - Final Complete Nasal Aspirate NEGATIVE FOR FLU A AND B ANTIGEN.... 08/02/16 15:25 Aerobic Blood Culture - Preliminary Resulted Blood Peripheral NO GROWTH IN 1 DAY 08/02/16 15:25 Anaerobic Blood Culture - Preliminary Resulted Blood Peripheral NO GROWTH IN 1 DAY Result Diagram: 08/03/16 0420 08/03/16 0420 Imaging Last Impressions Head CT 08/02/16 1516 Signed Impressions: Service Date/Time: Tuesday, August 02, 2016 16:35 - CONCLUSION: 1. No acute intracranial abnormalities. 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 Jaylen Fiore MD Chest X-Ray 08/02/16 0000 Signed Impressions: Service Date/Time: Tuesday, August 02, 2016 15:37 - CONCLUSION: No active disease. Compression deformity at T11 of uncertain age. 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 Self administers a vaccine for Lyme's disease. Last dose 1 day prior to admission. Fever and encephalopathy likely secondary to vaccine. Acute encephalopathy: likely vaccine induced. ? subclinical seizures. Hyperglycemia Recs: Continue Ceftriaxone IV Continue Vanco IV (target 15-20 for meningitis) Start Acyclovir (? HSV meningitis) Check HSV1/2 PCR as well as VZV PCR Check RPR Check HIV, Hepatitis profile. Check CSF AFB and Fungal cultures. EEG (r/o subclinical seizures) MRI brain (encephalitis, abscess etc) Consult Neurology (encephalopathy, abnormal LP with elevated total protein) Follow cultures Follow clinically. d.w patient and . d/w . Critical thinking and decision making Isadora Flores MD Aug 03, 2016 18:15
[2016-08-03] MEDS: ACYCLOVIR INJ 650 MG in SODIUM CHLORIDE 0.9% INJ 100 ML IV SCH (22:11)
[2016-08-03] MEDS: ACETAMINOPHEN 325 MG TAB PO PRN (22:12)
[2016-08-04] VITALS: BP_SYST 117; BP_SYST 178; BP_DIAS 54; BP_DIAS 82; PULSE 72; RESP 18; TEMP 99.6; O2SAT 96
[2016-08-04] MEDS ORDERED: VANCOMYCIN INJ 1,250 MG in SODIUM CHLOR 0.9% 250 ML INJ 250 ML IV SCH (02:00)
[2016-08-04 04:00] VITALS: BP 119/68; PULSE 68; RESP 16; TEMP 98.9; O2SAT 98
[2016-08-04] MEDS: ACYCLOVIR INJ 650 MG in SODIUM CHLORIDE 0.9% INJ 100 ML IV SCH ×2 (04:52→12:10)
[2016-08-04] MEDS: cefTRIAXone INJ 2,000 MG in SODIUM CHLORIDE 0.9% INJ 100 ML IV SCH ×2 (05:46→17:43)
[2016-08-04 08:00] VITALS: BP 132/70; PULSE 63; PULSE 71; RESP 17; TEMP 98.8; O2SAT 98
--- NOTE | 2016-08-04 08:12 | PD.CONS ---
History of Present Illness Service Neurology Consult Requested By id Reason for Consult confusion Primary Care Physician No Primary Care Physician History of Present Illness 75 y/o m admitted for confusion. they are visiting from [place]. 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 ?takes a vaccine for lymes onset this past wednesday. feels the patient is better this am and close to his baseline. temp 102.[address] brain naicp. no leukocytosis. csf: wbo 0, protein 66, rbc 13. denies any headache/neck pain. sick contacts. is doing well. pt not the best historian and his assists with most of the history but appear somewhat guarded in their responses. it appears he does have chronic gait imbalance and can have tremors. no dx of parkinsons. Review of Systems as above and admit hp Past Family Social History Allergies: Coded Allergies: Penicillin (Verified Allergy, Severe, Rash, 08/02/16) Past Medical History Lyme's Disease in 2005 h/o Rheumatic fever as a child. Past Surgical History Left Knee Surgery, Eye Surgery Reported Medications LYME VACCINE FROM [facility] self pay and self administers. Prescribed by Chiropracter in [place]. Reported Meds & Active Scripts Family History n/c Social History Lives in [place] with . Denies alcohol, smoking. Review of Systems All other ROS: ROS reviewed as documented in chart Past Family Social History Allergies: Coded Allergies: Penicillin (Verified Allergy, Severe, Rash, 08/02/16) Active Ordered Medications Current Medications Medications (Trade) Dose Ordered Sig/Bernardo Route Start Time Stop Time Status Last Admin Ceftriaxone Sodium 2000 mg/ Sodium Chloride 100 ml @ 200 mls/hr Q12H IV 08/03/16 06:00 08/04/16 05:46 (Vancomycin Consult Pharmacy) 0 ml @ 0 mls/hr UNSCH OTHER 08/02/16 19:30 (NS Flush) 2 ml UNSCH PRN FLUSH 08/02/16 19:30 (NS Flush) 2 ml BID FLUSH 08/02/16 21:00 08/03/16 22:12 (Zofran Inj) 4 mg Q6H PRN IVP 08/02/16 19:30 (Dulcolax Supp) 10 mg DAILY PRN CA 08/02/16 19:30 (Tylenol) 650 mg Q6H PRN PO 08/02/16 19:30 08/03/16 22:12 ([place] 5-325 Mg) 1 tab Q4H PRN PO 08/02/16 19:30 Acetaminophen/ Hydrocodone Bitart 1 tab 1 tab Q4H PRN PO 08/02/16 19:30 (Vancomycin Inj/ NS 250 ml Inj) 262.5 ml @ 262.5 mls/ hr Q24H IV 08/04/16 02:00 08/04/16 01:00 Miscellaneous Information SPECIFIC LAB TO BE ANUEL... ONCE ONCE XX 08/06/16 01:45 08/06/16 01:46 (Zovirax Inj/NS Inj) 100 ml @ 100 mls/hr Q8H IV 08/03/16 20:00 08/04/16 04:52 Exam I&O / VS 08/03/16 08/03/16 08/04/16 15:00 23:00 07:00 Intake Total 651 ml 100 ml 240 ml Output Total 200 ml 400 ml Balance 451 ml 100 ml -160 ml Intake Oral 240 ml IV Total 651 ml 100 ml Output Urine Total 200 ml 400 ml # Voids 2 1 # Bowel Movements 1 1 0 Vital Signs Date Time Temp Pulse Resp B/P Pulse Ox O2 Delivery O2 Flow Rate FiO2 08/04/16 04:00 98.9 68 16 119/68 98 08/04/16 00:00 99.6 72 18 117/54 96 08/03/16 19:22 101.2 81 28 136/74 94 08/03/16 16:00 100.4 75 20 127/75 96 08/03/16 12:30 20 08/03/16 12:00 20 08/03/16 12:00 100.4 74 28 104/58 94 General: Alert and Oriented, No acute distress Eye: EOMI Respiratory: Non-labored respirations Musculoskeletal: ROM Neurologic: Alert, Oriented Psychiatric: Cooperative Exam Comments in nad, lying in bed comfortably, follows, ox 2-3. not to exact date. pres: "do we have one?, it's Trump". humorous, facial hypomimia, neck with mild rigidity, eomi, vff, ulnar deviation in hands with mild increased tone in ue, cruz to gravity, can lift all ext off bed >10 secs, msr sym, no clonus, planter flexor, gait not assessed Review/Management Diagnosis/Plan: (1) Acute encephalopathy Plan: acute infection. ? viral encephalitis vs flu vs 2/2 medication looks well this am; wbc not elevated; but immunocompromised recs mri brain f/u rest of csf tests eeg esr/crp p.t. follow exam d/w pt/spouse no driving (2) SIRS (systemic inflammatory response syndrome) Plan: id following (3) Parkinsonism Plan: features on exam needs serial exams and f/u when he returns home may also be related to acute illness (4) Rheumatoid arthritis Plan: possible multiple areas of joint pain-chronic ulnar deviation of hands Problem Qualifiers (1) Parkinsonism: Qualified Code: G20 - Parkinsonism, unspecified Parkinsonism type (2) Rheumatoid arthritis: Jose Zavala MD Aug 04, 2016 08:12
[2016-08-04] MEDS: SODIUM CHLORIDE 0.9% FLUSH 5 ML FLUSH FLUSH SCH ×2 (09:00→20:17)
[2016-08-04] MEDS ORDERED: GADODIAMIDE PF 287 MG/ML 5 ML VIAL (for RAD MRI) IV ONE (10:16)
--- NOTE | 2016-08-04 10:16 | HHI.PR ---
Subjective Remarks Follow-up encephalopathy 08/03/16-patient seen and examined, alert or oriented 2. Still spiking fevers. by the bedside 08/04/16-patient seen and examined, patient much more alert and oriented today. MAXIMUM TEMPERATURE 101.2 at 7 PM however currently afebrile. at the bedside and provided some history. Patient seen and examined by neurology this morning Objective Vitals Vital Signs Date Time Temp Pulse Resp B/P Pulse Ox O2 Delivery O2 Flow Rate FiO2 08/04/16 08:00 98.8 63 17 132/70 98 08/04/16 04:00 98.9 68 16 119/68 98 08/04/16 00:00 99.6 72 18 117/54 96 08/03/16 19:22 101.2 81 28 136/74 94 08/03/16 16:00 100.4 75 20 127/75 96 08/03/16 12:30 20 08/03/16 12:00 20 08/03/16 12:00 100.4 74 28 104/58 94 I/O 08/03/16 08/03/16 08/03/16 08/04/16 08/04/16 08/04/16 07:00 15:00 23:00 07:00 15:00 23:00 Intake Total 1185 ml 651 ml 100 ml 240 ml 120 ml Output Total 350 ml 200 ml 400 ml Balance 835 ml 451 ml 100 ml -160 ml 120 ml Intake Oral 240 ml 240 ml 120 ml IV Total 945 ml 651 ml 100 ml Output Urine Total 350 ml 200 ml 400 ml # Voids 2 1 # Bowel Movements 1 1 0 Result Diagram: 08/03/16 0420 08/04/16 0501 Imaging Last Impressions Head CT 08/02/16 1516 Signed Impressions: Service Date/Time: Tuesday, August 02, 2016 16:35 - CONCLUSION: 1. No acute intracranial abnormalities. 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 Jaylen Fiore MD Chest X-Ray 08/02/16 0000 Signed Impressions: Service Date/Time: Tuesday, August 02, 2016 15:37 - CONCLUSION: No active disease. Compression deformity at T11 of uncertain age. Jaylen Fiore MD Objective Remarks GENERAL: NAD SKIN: Warm and dry. HEAD: Normocephalic. EYES: No scleral icterus. No injection or drainage. NECK: Supple, trachea midline. No JVD or lymphadenopathy. CARDIOVASCULAR: Regular rate and rhythm without murmurs, gallops, or rubs. RESPIRATORY: Breath sounds equal bilaterally. No accessory muscle use. Positive for expiratory wheezes GASTROINTESTINAL: Abdomen soft, non-tender, nondistended. MUSCULOSKELETAL: No cyanosis, or edema. BACK: Nontender without obvious deformity. No CVA tenderness. A/P Problem List: (1) Encephalopathy ICD Code: G93.40 Status: Acute (2) SIRS (systemic inflammatory response syndrome) ICD Code: R65.10 Status: Acute (3) Dehydration ICD Code: E86.0 Status: Acute (4) Hyperglycemia ICD Code: R73.9 Status: Acute Assessment and Plan 75-year-old male with 1. Encephalopathy: Resolving. CT Head w/ no acute findings. CXR negative for acute findings. U/a negative. S/p LP . h/o Lyme's Disease, CSF pending. S/p Blood Cultures, Vanc/Rocephin in ER. Follow up cultures, continue w/ IV Abx. Appreciate input from infectious disease specialist as well as neurology. 2. SIRS: Fever of unknown origin, Source-unclear, r/o Meningitis. ? early PNA. Influenza negative. Continue w/ IV Abx as above. 3. Dehydration: Resolved 4. Hyperglycemia: no h/o DM. Check Hgb A1c. Sliding scale w/ Accu-Cheks as needed. 5. History of Lyme disease: Advised patient and not to self medicated while here in hospital 6. History of RA: Ori Rivas MD Aug 04, 2016 10:16
--- NOTE | 2016-08-04 11:00 | RADRPT ---
EXAM DATE/TIME: 08/04/2016 10:01 [facility] COMPARISON: CT BRAIN W/O CONTRAST, August 02, 2016, 16:35. INDICATIONS : Abscess. Encephalitis. CONTRAST: 13 cc Omniscan (gadodiamide) IV MEDICAL HISTORY : None. SURGICAL HISTORY : Left knee. Metal fragments removed from eye. ENCOUNTER: Subsequent ACUITY: 3 day PAIN SCORE: 0/10 LOCATION: cranial TECHNIQUE: Multiplanar, multisequence MRI of the brain was performed both prior to and following the administrat ion of paramagnetic contrast. FINDINGS: CEREBRUM: The ventricles are normal for age. No evidence of midline shift, mass lesion, hemorrhage or acute in farction. No extraaxial fluid collections are seen. The pituitary gland and suprasellar cistern are normal in configuration. WHITE MATTER: On the flair weighted images there is mild increased signal in the periventricular white matter and c entrum semiovale. POSTERIOR FOSSA: The cerebellum and brainstem are intact. The 4th ventricle is midline. The cerebellopontine angle is unremarkable. The cerebellar tonsils are normal in position. DIFFUSION IMAGING: No focal areas of restricted diffusion are seen. No evidence of acute infarction. EXTRACRANIAL: The visualized portions of the orbits are unremarkable. There is a large mucocele or cyst retention c yst in the sphenoid sinus and left posterior ethmoidal air cells. POST-CONTRAST: No abnormal areas of parenchymal or dural enhancement. No evidence of blood-brain barrier breakdown. CONCLUSION: 1. No acute hemorrhage or infarction. 2. Atrophy and mild chronic small vessel ischemic change. 3. Large mucocele versus retention cyst in the sphenoid sinus and left posterior ethmoidal air cells. Olvin Hahn MD on August 04, 2016 at 10:56 Board Certified Radiologist. This report was verified electronically.
[2016-08-04 12:00] VITALS: BP 122/68; PULSE 70; RESP 20; TEMP 98.7; O2SAT 98
[2016-08-04] MEDS: RESP: ALBUTEROL 2.5 MG/IPRATROPIUM 0.5 MG NEB (SCH) NEB ×2 (13:48→14:00)
[2016-08-04] MEDS ORDERED: [UNRECOGNIZED DRUG - OTHER] PO (14:57)
--- NOTE | 2016-08-04 15:18 | MG ---
cc: KAMILLE SALINAS Lab No:[id number] Date: 08/04/2016 Age: Sex: M Race: TECHNIQUE 17 channel EEG. DESCRIPTION Background rhythm reveals an alpha rhythm which is symmetric at 8 Hz amplitude is about 20-30 microvolts. During drowsiness there is slowing in the theta range. Hyperventilation was not done. There does appear to be some sleep activity in terms of sleep spindles. There are no epileptiform discharges. No lateralizing features seen. INTERPRETATION Normal EEG. MD CRISTINE Darby/layla /2:46 PM /3:15 PM
[2016-08-04 16:00] VITALS: BP 124/74; PULSE 83; RESP 20; TEMP 98.4; O2SAT 98
[2016-08-04 17:14] LABS: LYME IGG IMMUNOBLOT CSF None Detected bands (None Detected); LYME IGM IMMUNOBLOT CSF None Detected bands (None Detected)
--- NOTE | 2016-08-04 18:03 | HHI.IDPN ---
Subjective Subjective Remarks is a 75 y/o CM with PMH reportedly of Lyme's Disease in 2005. Patient reports he has been on immunosuppression using a vaccine for Lymes disease that a chiropracter from [place] gives him as an oral shot. His insurance does not cover this vaccine and they pay 200$ out of pocket to get this vaccine. Last dose self administered was day prior to admission. His has the vaccine in her bag. Patient reports he is here for a life altering conference visiting from [place]. With this background, patient who was brought to the ER by secondary to AMS and gait instability starting acutely this morning. On morning of admission noted pt to be confused w/ slow responses and walking slowly. states symptoms similar to previous episode of Lyme's Disease. Notes non -productive cough, but no fever, SOB or sick contacts. On arrival, BP 136/65, HR 96, O2 sat 92% on RA, Temp 102.8. WBC normal, elevated neutrophil count. Chemistry essentially unremarkable except for GFR 62, BS 158. Lactic Acid 1.3. Ammonia 19. INR 1.0. UA with mild hematuria. CXR with no acute findings, compression deformity at T11 of uncertain age. CT Head with no acute findings, large retention cyst or mucocele and sphenoid sinus. S/p Blood Cultures, Vanc/ Rocephin in ER. S/p LP in ER w/ opening pressure 25mmHg, clear CSF noted, culture/gram stain pending. Overnight events reviewed. Fevers defervesced. No headaches. Continues to report improvement in mentation. Patient's reports that there is improvement in mentation. She thinks he is back to baseline. Antibiotics Ceftriaxone IV Vanco IV Acyclovir IV Lines Line sites with no evidence of infection. Past Medical History Reviewed. Allergies: Coded Allergies: Penicillin (Verified Allergy, Severe, Rash, 08/02/16) Objective . Vital Signs Date Time Temp Pulse Resp B/P Pulse Ox O2 Delivery O2 Flow Rate FiO2 08/04/16 16:00 98.4 83 20 124/74 98 08/04/16 12:00 98.7 70 20 122/68 98 08/04/16 08:00 71 08/04/16 08:00 98.8 63 17 132/70 98 08/04/16 04:00 98.9 68 16 119/68 98 08/04/16 00:00 99.6 72 18 117/54 96 08/03/16 19:22 101.2 81 28 136/74 94 08/03/16 08/03/16 08/04/16 15:00 23:00 07:00 Intake Total 651 ml 100 ml 240 ml Output Total 200 ml 400 ml Balance 451 ml 100 ml -160 ml Intake Oral 240 ml IV Total 651 ml 100 ml Output Urine Total 200 ml 400 ml # Voids 2 1 # Bowel Movements 1 1 0 . Laboratory Tests Test 08/03/16 08/04/16 04:20 12:40 White Blood Count 4.5 TH/MM3 Red Blood Count 3.95 MIL/MM3 Hemoglobin 12.4 GM/DL Hematocrit 36.6 % Mean Corpuscular Volume 92.6 FL Mean Corpuscular Hemoglobin 31.5 PG Mean Corpuscular Hemoglobin 34.0 % Concent Red Cell Distribution Width 14.6 % Platelet Count 142 TH/MM3 Mean Platelet Volume 9.5 FL Neutrophils (%) (Auto) 69.8 % Lymphocytes (%) (Auto) 7.7 % Monocytes (%) (Auto) 19.9 % Eosinophils (%) (Auto) 1.6 % Basophils (%) (Auto) 1.0 % Neutrophils # (Auto) 3.2 TH/MM3 Lymphocytes # (Auto) 0.3 TH/MM3 Monocytes # (Auto) 0.9 TH/MM3 Eosinophils # (Auto) 0.1 TH/MM3 Basophils # (Auto) 0.0 TH/MM3 CBC Comment DIFF FINAL Differential Comment Erythrocyte Sedimentation Rate 9 mm/hr Laboratory Tests Test 08/03/16 08/04/16 08/04/16 04:20 05:01 12:40 Sodium Level 143 MEQ/L Potassium Level 3.7 MEQ/L Chloride Level 110 MEQ/L Carbon Dioxide Level 25.5 MEQ/L Anion Gap 8 MEQ/L Blood Urea Nitrogen 10 MG/DL Creatinine 0.85 MG/DL 1.28 MG/DL Estimat Glomerular Filtration 88 ML/MIN 55 ML/MIN Rate Random Glucose 110 MG/DL Hemoglobin A1c 6.7 % Calcium Level 8.2 MG/DL Total Bilirubin 0.5 MG/DL Aspartate Amino Transf 16 U/L (AST/SGOT) Alanine Aminotransferase 15 U/L (ALT/SGPT) Alkaline Phosphatase 61 U/L Total Protein 6.1 GM/DL Albumin 3.1 GM/DL C-Reactive Protein 6.21 MG/DL Vitamin B12 Level 1626 PG/ML Thyroid Stimulating Hormone 1.040 uIU/ML 3rd Gen Microbiology Date/Time Procedure Status Source Growth 08/02/16 15:20 Aerobic Blood Culture - Preliminary Resulted Blood Peripheral NO GROWTH IN 2 DAYS 08/02/16 15:20 Anaerobic Blood Culture - Preliminary Resulted Blood Peripheral NO GROWTH IN 2 DAYS 08/02/16 15:25 Aerobic Blood Culture - Preliminary Resulted Blood Peripheral NO GROWTH IN 2 DAYS 08/02/16 15:25 Anaerobic Blood Culture - Preliminary Resulted Blood Peripheral NO GROWTH IN 2 DAYS 08/02/16 15:50 Influenza Types A,B Antigen (WENDI) - Final Complete Nasal Aspirate NEGATIVE FOR FLU A AND B ANTIGEN.... 08/02/16 18:20 Gram Stain - Final Resulted Cerebral Spinal Fluid Lumbar Puncture 08/02/16 18:20 CSF Culture - Preliminary Resulted Cerebral Spinal Fluid Lumbar Puncture NO GROWTH IN 48 HOURS. 08/03/16 12:15 Acid Fast Stain Received Cerebral Spinal Fluid Lumbar Puncture Pending 08/03/16 12:15 Mycobacterial Culture Received Cerebral Spinal Fluid Lumbar Puncture Pending 08/03/16 12:15 Fungal Smear Received Cerebral Spinal Fluid Lumbar Puncture Pending 08/03/16 12:15 Fungal Culture Received Cerebral Spinal Fluid Lumbar Puncture Pending Imaging Normal EEG. Last Impressions Brain MRI 08/04/16 0000 Signed Impressions: Service Date/Time: Thursday, August 04, 2016 10:01 - CONCLUSION: 1. No acute hemorrhage or infarction. 2. Atrophy and mild chronic small vessel ischemic change. 3. Large mucocele versus retention cyst in the sphenoid sinus and left posterior ethmoidal air cells. Olvin Hahn MD Head CT 08/02/16 1516 Signed Impressions: Service Date/Time: Tuesday, August 02, 2016 16:35 - CONCLUSION: 1. No acute intracranial abnormalities. 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 Jaylen Fiore MD Chest X-Ray 08/02/16 0000 Signed Impressions: Service Date/Time: Tuesday, August 02, 2016 15:37 - CONCLUSION: No active disease. Compression deformity at T11 of uncertain age. Jaylen Fiore MD Physical Exam GENERAL: This is a well-nourished, well-developed patient, in no apparent distress. SKIN: No rashes, ecchymoses or lesions. Cool and dry. HEAD: Atraumatic. Normocephalic. No temporal or scalp tenderness. EYES: Pupils equal round and reactive. Extraocular motions intact. No scleral icterus. No injection or drainage. ENT: Nose without bleeding, purulent drainage or septal hematoma. Throat without erythema, tonsillar hypertrophy or exudate. Uvula midline. Airway patent. NECK: Trachea midline. Supple, nontender, no meningeal signs. CARDIOVASCULAR: HS audible. RESPIRATORY: Clear to auscultation. Breath sounds equal bilaterally. No wheezes , rales, or rhonchi. GASTROINTESTINAL: Abdomen soft, non-tender, nondistended. MUSCULOSKELETAL: Extremities without clubbing, cyanosis, or edema. Left knee surgical scar intact. NEUROLOGICAL: Awake and alert. Grossly non focal No neck stiffness Cooperative IV line sites with no e.o infection. Assessment & Plan Remarks Possible mild encephalitis related to Lyme disease vaccine Prior h/o Lyme's disease. Self administers a vaccine for Lyme's disease. Last dose 1 day prior to admission. Fever and encephalopathy likely secondary to vaccine. Acute encephalopathy: likely vaccine induced. Appears to be at baseline per . Hyperglycemia Recs: Discontinue ceftriaxone IV Discontinue vancomycin IV Discontinue acyclovir IV Follow HSV1/2 PCR as well as VZV PCR HIV and hepatitis negative. RPR negative. EEG negative. MRI brain with no evidence of encephalitis or brain abscess. Neurology consult appreciated. Follow cultures Follow clinically. d.w patient and . showed me and RN vials: Babesia microti: sinhala formulation of some oral vaccine which he takes once a week. Last dose was on Wednesday after which he developed fever. d/w . Critical thinking and decision making Isadora Flores MD Aug 04, 2016 18:03
[2016-08-04 20:18] VITALS: BP 137/66; PULSE 80; RESP 18; TEMP 99.2; O2SAT 98
[2016-08-05 00:14] VITALS: BP 160/75; PULSE 82; RESP 18; TEMP 98.6; O2SAT 94
[2016-08-05] MEDS: SODIUM CHLORIDE 0.9% FLUSH 5 ML FLUSH FLUSH SCH (07:55)
[2016-08-05 08:00] VITALS: BP 157/67; PULSE 60; RESP 17; TEMP 97.9; O2SAT 96
[2016-08-05 10:01] LABS: HSV 1,PCR Negative (Negative)
--- NOTE | 2016-08-05 11:19 | HHI.PR ---
Subjective Remarks Follow-up encephalopathy 08/03/16-patient seen and examined, alert or oriented 2. Still spiking fevers. by the bedside 08/04/16-patient seen and examined, patient much more alert and oriented today. MAXIMUM TEMPERATURE 101.2 at 7 PM however currently afebrile. at the bedside and provided some history. Patient seen and examined by neurology this morning 08/05/16-patient seen and examined, alert oriented 3 and now back to his baseline per report. Both Patient and his both are eager to leave in order to drive back to [place] Objective Vitals Vital Signs Date Time Temp Pulse Resp B/P Pulse Ox O2 Delivery O2 Flow Rate FiO2 08/05/16 08:00 97.9 60 17 157/67 96 08/05/16 00:14 98.6 82 18 160/75 94 08/04/16 20:18 99.2 80 18 137/66 98 08/04/16 16:00 98.4 83 20 124/74 98 08/04/16 12:00 98.7 70 20 122/68 98 I/O 08/04/16 08/04/16 08/04/16 08/05/16 08/05/16 08/05/16 07:00 15:00 23:00 07:00 15:00 23:00 Intake Total 240 ml 120 ml 1440 ml 360 ml Output Total 400 ml 800 ml Balance -160 ml 120 ml 640 ml 360 ml Intake Oral 240 ml 120 ml 1440 ml 360 ml IV Total 0 ml Output Urine Total 400 ml 800 ml # Voids 2 2 # Bowel Movements 0 1 Result Diagram: 08/03/16 0420 08/04/16 0501 Imaging Last Impressions Brain MRI 08/04/16 0000 Signed Impressions: Service Date/Time: Thursday, August 04, 2016 10:01 - CONCLUSION: 1. No acute hemorrhage or infarction. 2. Atrophy and mild chronic small vessel ischemic change. 3. Large mucocele versus retention cyst in the sphenoid sinus and left posterior ethmoidal air cells. Olvin Hahn MD Head CT 08/02/16 1516 Signed Impressions: Service Date/Time: Tuesday, August 02, 2016 16:35 - CONCLUSION: 1. No acute intracranial abnormalities. 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 Jaylen Fiore MD Chest X-Ray 08/02/16 0000 Signed Impressions: Service Date/Time: Tuesday, August 02, 2016 15:37 - CONCLUSION: No active disease. Compression deformity at T11 of uncertain age. Jaylen Fiore MD Objective Remarks GENERAL: NAD SKIN: Warm and dry. HEAD: Normocephalic. EYES: No scleral icterus. No injection or drainage. NECK: Supple, trachea midline. No JVD or lymphadenopathy. CARDIOVASCULAR: Regular rate and rhythm without murmurs, gallops, or rubs. RESPIRATORY: Breath sounds equal bilaterally. No accessory muscle use. Positive for expiratory wheezes GASTROINTESTINAL: Abdomen soft, non-tender, nondistended. MUSCULOSKELETAL: No cyanosis, or edema. BACK: Nontender without obvious deformity. No CVA tenderness. Procedures none A/P Problem List: (1) Encephalopathy ICD Code: G93.40 Status: Resolved (2) SIRS (systemic inflammatory response syndrome) ICD Code: R65.10 Status: Resolved (3) Dehydration ICD Code: E86.0 Status: Resolved (4) Hyperglycemia ICD Code: R73.9 Status: Acute Assessment and Plan 75-year-old male with 1. Encephalopathy/mild encephalitis: Resolved likely secondary to Lyme disease vaccine received right prior to admission. CT Head w/ no acute findings.MRI brain 08/04/16 with no evidence of encephalitis or brain abscess . EEG negative. CXR negative for acute findings. U/a negative. S/p LP and cultures NTD. h/o Lyme's Disease, CSF negative. RPR negative, HIV negative, HSV 1/2 negative pending VZV PCR .All antibiotics including Rocephin, vancomycin and acyclovir were discontinued 08/04/16. Appreciate input from infectious disease specialist as well as neurology. 2. SIRS: Fever of unknown origin however could've been secondary to vaccine for Lyme disease patient received prior to admission. Now resolved 3. Dehydration: Resolved with gentle IV fluid hydration 4. Hyperglycemia: no h/o DM. Hgb A1c 6.7. Sliding scale w/ Accu-Cheks as needed. 5. History of Lyme disease: Advised patient and not to self medicated while here in hospital 6. History of RA: Chronic 7. DVT prophylaxis: Bilateral SCDs Discharge Planning Discharge within next 24 hours Ori Alvarado MD Aug 05, 2016 11:19
--- NOTE | 2016-08-05 11:32 | HHI.DS ---
Discharge Summary Admission Date Aug 02, 2016 at 18:46 Discharge Date: Aug 05, 2016 Admitting Diagnosis encephalitis, SIRS (1) Encephalopathy ICD Code: G93.40 (2) SIRS (systemic inflammatory response syndrome) ICD Code: R65.10 (3) Dehydration ICD Code: E86.0 (4) Hyperglycemia ICD Code: R73.9 Procedures none Brief History - From Admission This is a 75-year-old male with PMH Lyme's Disease in 2005 who was brought to the ER by secondary to AMS and gait instability starting acutely this morning. Per , they are visiting from [place] for a Conference, this morning noted pt to be confused w/ slow responses and walking slowly. states symptoms similar to previous episode of Lyme's Disease. Notes non- productive cough, but no fever, SOB or sick contacts. On arrival, BP 136/65, HR 96, O2 sat 92% on RA, Temp 102.8. WBC normal, elevated neutrophil count. Chemistry essentially unremarkable except for GFR 62, BS 158. Lactic Acid 1.3. Ammonia 19. INR 1.0. UA with mild hematuria. CXR with no acute findings, compression deformity at T11 of uncertain age. CT Head with no acute findings, large retention cyst or mucocele and sphenoid sinus. S/p Blood Cultures, Vanc/ Rocephin in ER. S/p LP in ER w/ opening pressure 25mmHg, clear CSF noted, culture/gram stain pending. CBC/BMP: 08/03/16 0420 08/04/16 0501 Significant Findings Laboratory Tests Test 08/02/16 08/02/16 08/03/16 08/04/16 15:20 18:20 04:20 05:01 Red Blood Count 4.25 MIL/MM3 3.95 MIL/MM3 (4.50-5.90) (4.50-5.90) Neutrophils (%) (Auto) 84.5 % (16.0-70.0) Lymphocytes (%) (Auto) 3.4 % 7.7 % (9.0-44.0) (9.0-44.0) Monocytes (%) (Auto) 10.6 % 19.9 % (0.0-8.0) (0.0-8.0) Lymphocytes # (Auto) 0.3 TH/MM3 0.3 TH/MM3 (1.0-4.8) (1.0-4.8) Urine Color DARK-YELLOW (YELLW/STRAW) Urine Protein 30 mg/dL (NEG-TRACE) Urine RBC 5 /hpf (0-3) Urine Mucus FEW /lpf (OCC) Estimat Glomerular Filtration 62 ML/MIN (>89) 88 ML/MIN (>89) 55 ML/MIN (>89) Rate Random Glucose 158 MG/DL 110 MG/DL (74-106) (74-106) Aspartate Amino Transf 14 U/L (15-37) (AST/SGOT) CSF RBC (Tube 4) 13 /MM3 (NONE) CSF Glucose 100 MG/DL (40-80) CSF Total Protein 66.5 MG/DL (15.0-45.0) Hemoglobin 12.4 GM/DL (13.0-17.0) Hematocrit 36.6 % (39.0-51.0) Platelet Count 142 TH/MM3 (150-450) Chloride Level 110 MEQ/L (98-107) Hemoglobin A1c 6.7 % (4.3-6.0) Calcium Level 8.2 MG/DL (8.5-10.1) Total Protein 6.1 GM/DL (6.4-8.2) Albumin 3.1 GM/DL (3.4-5.0) Test 08/04/16 12:40 C-Reactive Protein 6.21 MG/DL (0.00-0.30) Vitamin B12 Level 1626 PG/ML (193-986) Imaging Last Impressions Brain MRI 08/04/16 0000 Signed Impressions: Service Date/Time: Thursday, August 04, 2016 10:01 - CONCLUSION: 1. No acute hemorrhage or infarction. 2. Atrophy and mild chronic small vessel ischemic change. 3. Large mucocele versus retention cyst in the sphenoid sinus and left posterior ethmoidal air cells. Olvin Hahn MD Head CT 08/02/16 1516 Signed Impressions: Service Date/Time: Tuesday, August 02, 2016 16:35 - CONCLUSION: 1. No acute intracranial abnormalities. 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 Jaylen Fiore MD Chest X-Ray 08/02/16 0000 Signed Impressions: Service Date/Time: Tuesday, August 02, 2016 15:37 - CONCLUSION: No active disease. Compression deformity at T11 of uncertain age. Jaylen Fiore MD PE at Discharge GENERAL: NAD SKIN: Warm and dry. HEAD: Normocephalic. EYES: No scleral icterus. No injection or drainage. NECK: Supple, trachea midline. No JVD or lymphadenopathy. CARDIOVASCULAR: Regular rate and rhythm without murmurs, gallops, or rubs. RESPIRATORY: Breath sounds equal bilaterally. No accessory muscle use. Positive for expiratory wheezes GASTROINTESTINAL: Abdomen soft, non-tender, nondistended. MUSCULOSKELETAL: No cyanosis, or edema. BACK: Nontender without obvious deformity. No CVA tenderness. Hospital Course 1. Encephalopathy/mild encephalitis: Resolved likely secondary to Lyme disease vaccine received right prior to admission. CT Head w/ no acute findings.MRI brain 08/04/16 with no evidence of encephalitis or brain abscess . EEG negative. CXR negative for acute findings. U/a negative. S/p LP and cultures NTD. h/o Lyme's Disease, CSF negative. RPR negative, HIV negative, HSV 1/2 negative pending VZV PCR .All antibiotics including Rocephin, vancomycin and acyclovir were discontinued 08/04/16. Appreciate input from infectious disease specialist as well as neurology. 2. SIRS: Fever of unknown origin however could've been secondary to vaccine for Lyme disease patient received prior to admission. Now resolved 3. Dehydration: Resolved with gentle IV fluid hydration 4. Hyperglycemia: no h/o DM. Hgb A1c 6.7. Sliding scale w/ Accu-Cheks as needed. 5. History of Lyme disease: Advised patient and not to self medicated while here in hospital 6. History of RA: Chronic 7. DVT prophylaxis: Bilateral SCDs Pt Condition on Discharge: Stable Discharge Disposition: Discharge Home Discharge Time: <= 30 minutes Discharge Instructions DIET: Follow Instructions for: Heart Healthy Diet Activities you can perform: Regular-No Restrictions Follow up Referrals: PCP Follow-up - 1 Week Discontinued Medications: ([Babesia 1M]) VIAL PO WEEKLY Lyme Disease #1 Ori Alvarado MD Aug 05, 2016 11:32
[2016-08-05 12:00] VITALS: BP 122/65; PULSE 66; RESP 18; TEMP 97.5; O2SAT 96
[2016-08-06] MEDS ORDERED: PHARMACY ORDERED LAB XX ONE (01:45)
[2016-08-06 19:53] LABS: VDRL CSF NON-REACTIVE (())
[2016-08-06 23:55] LABS: VZV PCR RESULT <500 (())
[2016-08-07 10:23] LABS: CSF CRYPTOCOCCUS AG CONF ND (NOT DETECTD)
== END 2016-08-05 16:40 | disposition home or self-care (01) | DRG 97 ==
LOC: NEPC 14:47 → NEDA 18:46 → N07B 21:30
PROVIDERS: ADMIT Hospitalist; ATTEND Hospitalist
PROC: 009U3ZX Drainage of Spinal Canal, Percutaneous Approach, Diagnostic (ICD-10-PCS; principal; 2016-08-02)
DX: G04.90 Encephalitis and encephalomyelitis, unspecified (principal); G93.40 Encephalopathy, unspecified; E86.0 Dehydration; D89.9 Disorder involving the immune mechanism, unspecified; T88.1XXA Other complications following immunization, not elsewhere classified, initial encounter; Z86.19 Personal history of other infectious and parasitic diseases; M06.9 Rheumatoid arthritis, unspecified; R73.9 Hyperglycemia, unspecified; Z96.652 Presence of left artificial knee joint; H91.93 Unspecified hearing loss, bilateral
CPT/HCPCS: 62270; 70450; 70553; 71020; 80053; 80074; 81001; 82140; 82565; 82607; 82945; 83036; 83605; 84145; 84157; 84443; 85025; 85610; 85652; 85730; 86038; 86140; 86403; 86592; 86618; 86703; 87015; 87040; 87070; 87102; 87116; 87205; 87206; 87529; 87799; 87804; 89051; 93005; 94640; 94664; 95819; 96374; A9579; J0133; J0696; J3370; J7030; J7040; J7050; J7060